=== PATIENT | male | born 1970 | race Caucasian/White ===

== ENCOUNTER 2020-10-03 22:21 | Emergency (ER) | payer SELFPAY ==
[~2020-10-03] VITALS: Ht 170.2 cm; Wt 70.8 kg
[~2020-10-03 22:21] MED LIST: BP MED; Bactrim Ds Tab1 EACH PO; Cleocin HCl300 MG PO; Keflex500 MG PO
== END 2020-10-03 23:36 | disposition home or self-care (01) ==
LOC: ER 22:21
DX: S01.81XA Laceration without foreign body of other part of head, initial encounter (principal); I10 Essential (primary) hypertension; F17.210 Nicotine dependence, cigarettes, uncomplicated; Z23 Encounter for immunization; W10.9XXA Fall (on) (from) unspecified stairs and steps, initial encounter
CPT/HCPCS: 12054; 90471; 90714; 99282-25